=== PATIENT | female | born 1970 | race Two or more races ===

== ENCOUNTER 2025-01-30 09:22 | Outpatient (RCR) | payer MEDICAID, SELFPAY ==
--- NOTE | 2025-01-30 09:38 | XR_ITS ---
Examination: HEDY, hepatobiliary radioisotope scan Gallbladder ejection fraction study. Date and time of exam: January 30, 2025, 11:53 a.m. INDICATIONS: Bloating abdominal pain nausea heartburn months Technique: 5.8 mCi of 99M Hepatolite administered. Serial imaging then obtained from immediate through 60 minutes. 1.8 mcg selective catheter Kinevac administered for gallbladder ejection fraction study. Findings: Radioisotope activity within the liver is reasonably homogenous. Gallbladder, common bile duct small bowel activity noted Impression: Gallbladder activity Abnormal gallbladder ejection fraction, 16%, normal greater than 35%
== END 2025-02-04 23:59 | disposition home or self-care (01) ==
LOC: SNUC 09:22
PROVIDERS: PCP Student in an Organized Health Care Education/Training Program; Referring Provider Student in an Organized Health Care Education/Training Program; Visit Provider Student in an Organized Health Care Education/Training Program
DX: R93.2 Abnormal findings on diagnostic imaging of liver and biliary tract (principal)
CPT/HCPCS: 78227; A9537; J2805